=== PATIENT | female | born 1990 | race Caucasian/White ===

== ENCOUNTER 2018-10-13 21:23 | Emergency (ER) | payer BC ==
[2018-10-13 21:28] VITALS: BP 124/77
[2018-10-13] MEDS ORDERED: cefTRIAXone 1 GM VIAL IM STA (21:42)
[2018-10-13] MEDS ORDERED: LIDOCAINE 1% 2 ML VIAL MC ONE (21:42)
[2018-10-13] MEDS ORDERED: IBUPROFEN 800 MG TABLET PO STA (21:42)
[2018-10-13] MEDS ORDERED: PHENAZOPYRIDINE 100 MG TABLET PO STA (21:42)
--- NOTE | 2018-10-13 21:45 | ED Physician Documentation ---
PD HPI FEMALE - Stated complaint Stated Complaint: FEM - Chief complaint Chief Complaint: UTI - History obtained from History obtained from: Patient - History of Present Illness Timing - onset: Today Timing - duration: Days (1) Timing - details: Gradual onset Pain level max: 8 Pain level max: 8 Associated symptoms: Dysuria, Urinary frequency, Hematuria Contributing factors: Exposed to STD (possible?). No: , control, Oral contraceptive, Depo, IUD, Condoms, Tubal ligation, Hysterectomy, Sexually active, Not sexually active Similar symptoms before: Diagnosis (UTI) Recently seen: Not recently seen Review of Systems Constitutional: denies: Fever, Chills GI: denies: Nausea, Vomiting : reports: Dysuria, Frequency, Hesitancy, Hematuria. denies: Discharge, Now EGA Skin: denies: Rash Musculoskeletal: denies: Neck pain, Back pain Neurologic: denies: Headache PD PAST MEDICAL HISTORY - Past Medical History Past Medical History: No - Past Surgical History Past Surgical History: No - Present Medications Home Medications: Ambulatory Orders Medication Instructions Recorded Confirmed Ibuprofen [Motrin] 800 mg PO Q8H PRN #30 tablet 10/13/18 Nitrofurantoin Monohyd/M-Cryst 100 mg PO BID #10 capsule 10/13/18 [Macrobid 100 mg Capsule] Phenazopyridine HCl [Pyridium] 200 mg PO TID PRN #6 tablet 10/13/18 Valacyclovir HCl [Valtrex] 1,000 mg PO BID #20 tablet 10/13/18 - Allergies Allergies/Adverse Reactions: Allergies Allergy/AdvReac Type Severity Reaction Status Date / Time No Known Drug Allergies Allergy Verified 10/13/18 21:28 - Living Situation Living Situation: reports: With family Living Arrangement: reports: At home - Social History Does the pt have substance abuse?: No - Family History Family history: reports: Non contributory PD ED PE NORMAL - Vitals Vital signs reviewed: Yes - General General: Alert and oriented X 3, Other (appears uncomfortable) - Neck Neck: Supple, no meningeal sign - Cardiac Cardiac: RRR, Strong equal pulses - Respiratory Respiratory: No respiratory distress, Clear bilaterally - Abdomen Abdomen: Soft, Other (TTP suprapubic) - Back Back: No CVA TTP - Derm Derm: Warm and dry, No rash - Neuro Neuro: Alert and oriented X 3 Results - Vitals Vitals: Oxygen O2 Source Room air - Labs Labs: Microbiology 10/13/18 21:30 Urine Culture - Final Urine,Clean Catch Escherichia Coli Laboratory Tests 10/13/18 10/13/18 10/13/18 21:30 21:30 22:00 Urine Color DARK YELLOW Urine Clarity CLOUDY Urine pH 6.5 Ur Specific [place] >=1.030 H >1.030 Urine Protein >=300 H Urine Glucose (UA) NEGATIVE Urine Ketones TRACE Urine Occult Blood LARGE H Urine Nitrite POSITIVE H Urine Bilirubin NEGATIVE Urine Urobilinogen 1 (NORMAL) Ur Leukocyte Esterase LARGE H Urine RBC TNTC H Urine WBC >25 H Ur Squamous Epith Cells RARE Squamous Urine Crystals 0-2 Calcium Oxalate Urine Bacteria Moderate H Ur Microscopic Review INDICATED Urine Culture Comments INDICATED Urine HCG, Qual NEGATIVE C. glabrata (PCR) C. krusei (PCR) Yelitza species DNA Chlam trachomat DNA PCR NEGATIVE N.gonorrhoeae DNA (PCR) NEGATIVE T. vaginalis (PCR) NEGATIVE Bact Vaginosis (PCR) 10/13/18 22:00 Urine Color Urine Clarity Urine pH Ur Specific [place] Urine Protein Urine Glucose (UA) Urine Ketones Urine Occult Blood Urine Nitrite Urine Bilirubin Urine Urobilinogen Ur Leukocyte Esterase Urine RBC Urine WBC Ur Squamous Epith Cells Urine Crystals Urine Bacteria Ur Microscopic Review Urine Culture Comments Urine HCG, Qual C. glabrata (PCR) NEGATIVE C. krusei (PCR) NEGATIVE Yelitza species DNA POSITIVE A Chlam trachomat DNA PCR N.gonorrhoeae DNA (PCR) T. vaginalis (PCR) NEGATIVE Bact Vaginosis (PCR) NEGATIVE PD MEDICAL DECISION MAKING - ED course Complexity details: reviewed results, re-evaluated patient, considered differential, d/w patient ED course: 28-year-old female presents to the emergency department with a UTI. She is having significant discomfort. A pelvic examination was performed and there does appear to be ulcerated areas on the cervix. She does have cervical motion tenderness. Exam is concerning for herpes simplex. Will start on valacyclovir. She was also treated for possible gonorrhea and chlamydia though I clinically doubt that these are present. Patient will follow-up with her doctor for further care. Patient counseled regarding signs and symptoms for which I believe and urgent re-evaluation would be necessary. Patient with good understanding of and agreement to plan and is comfortable going home at this time This document was made in part using voice recognition software. While efforts are made to proofread this document, sound alike and grammatical errors may occur. Departure - Departure Disposition: 01 Home, Self Care Clinical Impression: Herpesviral cervicitis Urinary tract infection Qualifiers: Urinary tract infection type: acute cystitis Hematuria presence: without hematuria Qualified Code(s): N30.00 - Acute cystitis without hematuria Condition: Good Instructions: ED Herpes Simplex Virus Type 2, ED UTI Cystitis Female Follow-Up: your,doctor in 1 week [Other] Prescriptions: Ibuprofen [Motrin] 800 mg PO Q8H PRN #30 tablet PRN Reason: PAIN &/OR FEVER Nitrofurantoin Monohyd/M-Cryst [Macrobid 100 mg Capsule] 100 mg PO BID #10 capsule Phenazopyridine HCl [Pyridium] 200 mg PO TID PRN #6 tablet PRN Reason: dysuria Valacyclovir HCl [Valtrex] 1,000 mg PO BID #20 tablet Comments: Return if you worsen. Take all antibiotics until gone. You should have a follow up pelvic exam with your tax expert in 4-6 weeks. your partner can go to an urgent care and ask for valtrex as well. Discharge Date/Time: 10/13/18 22:59
[2018-10-13 21:54] LABS: GLUCOSE, URINE (UA) NEGATIVE (NEGATIVE); KETONES,URINE (UA) TRACE mg/dL (NEGATIVE); LEUKOCYTE ESTERASE, URINE LARGE (NEGATIVE); NITRITE,URINE POSITIVE (NEGATIVE); OCCULT BLOOD,URINE LARGE (NEGATIVE); PH,URINE 6.5 PH (5.0-7.5); PROTEIN,URINE >=300 mg/dL (NEGATIVE); UROBILINOGEN,URINE 1 (NORMAL) E.U./dL (NORMAL)
[2018-10-13] MEDS ORDERED: valACYclovir 500 MG TABLET PO STA (21:59)
[2018-10-13 22:00] LABS: BILIRUBIN,URINE NEGATIVE (NEGATIVE); CLARITY,URINE CLOUDY (CLEAR); ICTOTEST,URINE NEGATIVE
[2018-10-13] MEDS ORDERED: AZITHROMYCIN 250 MG TABLET PO STA (22:02)
[2018-10-13 22:04] LABS: RBC,URINE TNTC /HPF (0-5)
[2018-10-13 22:05] LABS: BACTERIA,URINE Moderate /HPF (None Seen); CRYSTALS,URINE 0-2 Calcium Oxalate /LPF; SQUAMOUS EPITHELIAL CELL,UR RARE Squamous (<= Few)
[2018-10-13 23:05] LABS: HCG UR QUAL NEGATIVE
[2018-10-13 23:50] LABS: CANDIDA GROUP DNA POSITIVE (NEGATIVE); CANDIDA KRUSEI DNA NEGATIVE (NEGATIVE); TRICHOMONAS VAGINALIS DNA NEGATIVE (NEGATIVE)
[2018-10-14 23:31] LABS: TRICHOMONAS VAGINALIS DNA NEGATIVE (NEGATIVE)
== END 2018-10-13 22:59 | disposition home or self-care (01) ==
LOC: ED 21:23
DX: A60.03 Herpesviral cervicitis (principal); N30.01 Acute cystitis with hematuria
CPT/HCPCS: 81001; 81025; 87086; 87181; 87481; 87491; 87591; 87661; 87801; 96372; 99283; A9270; 81003